=== PATIENT | male | born 1960 | race Caucasian/White ===

== ENCOUNTER 2016-10-03 08:52 | Emergency (ER) | payer MEDICAID ==
[~2016-10-03] VITALS: Ht 182.9 cm; Wt 99.3 kg
[2016-10-03] MEDS ORDERED: KETOROLAC TROMETHAMINE INJ 60 MG/2 ML VIAL IM ONE ×2 (09:25→09:30)
[2016-10-03 10:57] VITALS: BP 145/73
== END 2016-10-03 11:00 | disposition home or self-care (01) ==
LOC: ER 08:53
DX: R68.84 Jaw pain (principal); K13.0 Diseases of lips; I10 Essential (primary) hypertension; I25.10 Atherosclerotic heart disease of native coronary artery without angina pectoris; F17.200 Nicotine dependence, unspecified, uncomplicated; Z86.73 Personal history of transient ischemic attack (TIA), and cerebral infarction without residual deficits
CPT/HCPCS: 70486; 96372; 99284; A4606; J1885; Z7610